=== PATIENT | female | born 1965 | race Caucasian/White ===

== ENCOUNTER 2022-01-23 16:14 | Emergency (ER) | payer BC ==
[~2022-01-23] VITALS: Ht 162.6 cm; Wt 90.7 kg
[~2022-01-23 16:14] MED LIST: ESCITALOPRAM OX20 MG PO; ESTRADIOL1 EA10 TD; FLONASE ALLERG9.9 ML NAS; LEXAPRO10 MG PO; MULTIVITAMINS1 EAC7 PO; TOPIRAMATE25 MG PO; VITAMIN D1000 UNIT PO; ZYRTEC10 M3 PO
[2022-01-23] MEDS ORDERED: ONDANSETRON ODT4 MG PO (18:12)
== END 2022-01-23 18:21 | disposition home or self-care (01) ==
LOC: ED 16:14
DX: J06.9 Acute upper respiratory infection, unspecified (principal); R19.7 Diarrhea, unspecified; R11.0 Nausea; Z87.891 Personal history of nicotine dependence; Z20.822 Contact with and (suspected) exposure to COVID-19; Z88.2 Allergy status to sulfonamides; Z88.6 Allergy status to analgesic agent; Z88.8 Allergy status to other drugs, medicaments and biological substances
CPT/HCPCS: 87502; 99284; C9803; U0003

== ENCOUNTER 2022-02-21 05:56 | Day surgery (SDC) | payer BC ==
[~2022-02-21] VITALS: Ht 162.6 cm; Wt 89.5 kg
[~2022-02-21 05:56] MED LIST changes: +ONDANSETRON ODT4 MG PO
--- NOTE | 2022-02-21 09:32 | NUR ---
02/21/22 0931 Laureen Paniagua 0973 PATIENT ARRIVES TO PACU RESTING WITH EYES CLOSED. RESP EVEN AND UNLABORED, MASK AT 8 LITERS, DECREASED TO 6 LITERS.
--- NOTE | 2022-02-21 10:30 | NUR ---
PT ALERT, ORIENTED AND SEEMS PREPARED. HAD POSITIVE VISIT, GAVE ENCOURAGEMENT. PT HAS FRIEND THAT WILL BE HERE FOR DC. PT REQUESTED PRAYER, WILL FOLLOW
--- NOTE | 2022-02-21 11:17 | NUR ---
1105: PT ARRIVES TO UNIT VIA STRETCHER FROM PACU. DROWSY BUT WAKES WHEN SPOKEN TO. ANSWERS QUESTIONS APPROPRIATELY. VSS, RESP EVEN AND UNLABORED. REPORTS FLORENCIO PAIN LEVEL, 3/10 AT THIS TIME. DENIES NAUSEA, ICE WATER AND CRACKERS PROVIDED. BEAR HUGGER AND SCDS IN PLACE. LAP SITES X4 C/D/I. POC DISCUSED AND PT VOICES UNDERSTANDING. NO NEEDS AT THIS TIME, CALL LIGHT WITHIN REACH
--- NOTE | 2022-02-21 12:01 | NUR ---
1145: PT WITH CALL FOR THIS RN, REPORTS URGE TO VOID. VSS, RESP EVEN AND UNLABORED. NO CHANGE TO LAP SITES FROM ARRIVAL. DENIES NAUSEA AND REPORTS FLORENCIO PAIN LEVEL, 3/10. DANGLES AT THE BEDSIDE, FLORENCIO WELL DENIES DIZZINESS AND SOB. AMBULATES TO BR WITH STANDBY FROM THIS RN, STEADY GAIT. SUCCESSFUL FIRST POSTOP VOID, 600ML. REQUESTS TO CHANGE INTO OWN CLOTHING, DENIES NEED FOR ASSIST. CALL LIGHT WITHIN REACH
--- NOTE | 2022-02-21 12:38 | NUR ---
1215: DENA- FRIEND CONTACTED FOR DC, TO ARRIVE IN 10-15 MINUTES. SL DC'D WITH CATH TIP INTACT AND PRESSURE APPLIED TO SITE. DC INSTRUCTIONS PROVIDED AND DISCUSSED ORDERED. PT VOICES UNDERSTANDING AND DENIES QUESTIONS AND CONCERNS AT THIS TIME. 1225: PT WHEELED OFF OF UNIT BY THIS RN IN . TRANSFERS INTO VEHICLE INDEPENDENTLY AND APPROPRIATELY. NO PHYSICAL S/S OF DISTRESS AT THIS TIME
--- NOTE | 2022-02-21 17:26 | OR ---
[facility] [address] [place], [place] [address] Signed DATE OF OPERATION: 02/21/2022 SURGEON: Chichi Driver DO PREOPERATIVE DIAGNOSES: 1. Chronic pelvic pain. 2. History of pelvic adhesions. POSTOPERATIVE DIAGNOSES: 1. Chronic pelvic pain. 2. Extensive abdominal and pelvic adhesions. PROCEDURE PERFORMED: Laparoscopic extensive lysis of adhesions greater than 60 minutes. FIRE EQUIPMENT INSPECTOR: Savannah Mooney DO. INTRAOPERATIVE CONSULTATION: Karan Deluca MD, General Surgery. ANESTHESIA: General. ESTIMATED BLOOD LOSS: 20 mL. SPECIMEN: None. FINDINGS: Normal external genitalia with normal clitoris, urethral meatus, bilateral [place]'s, and Bartholin's gland. Normal vagina with normal vaginal cuff. Cervix, uterus and tubes and ovaries surgically absent consistent with surgical history. Extensive abdominal, pelvic and omental adhesions to the abdominal wall. Umbilicus, sigmoid colon, pelvic, peritoneum and bladder that were taken down with blunt monopolar and bipolar dissection. Hemostasis appreciated. The preperitoneal fat pad under the umbilicus with no herniation noted. Appreciate, Dr. Deluca's intraoperative recommendations. COMPLICATIONS: Electronically Signed By: CHICHI DRIVER DO 02/21/22 1726 PATIENT NAME: JUNIE ROSALES OPERATIVE REPORT DATE OF : 65 REPORT #: [id number] PHYSICIAN: CHICHI DRIVER DO PCP: ARSENIO GAMBINO DO REPORT IS CONFIDENTIAL AND NOT TO BE RELEASED WITHOUT AUTHORIZATION [facility] [address] [place], [place] [address] Signed None. INDICATIONS: Ms. Rosales is a very pleasant 56-year-old postmenopausal female who underwent total laparoscopic hysterectomy, bilateral salpingo-oophorectomy years ago for chronic pelvic pain and was noted to have a pelvic adhesions at that time per patient. She reports a recurrence of similar pain specially in the right lower quadrant that she attributes to adhesive disease. Reviewed options for further evaluation and management of this and patient desires diagnostic laparoscopy with possible lysis of adhesions. Risks, benefits, and alternatives were discussed in detail with the patient. The patient understands and wished to proceed with the procedure. PROCEDURE IN DETAIL: The patient was taken to the operating room. Time-out was performed confirming correct patient and procedure. General anesthesia was adequately established. The patient was prepped and draped in dorsal lithotomy position with her feet in Yellofin stirrups. ICPs were on and running and no preoperative antibiotics were indicated. The patient did receive 5000 units of heparin per preoperative Caprini score. A Madison catheter was inserted and the surgeon's gloves were changed. Attention was turned to the umbilicus. Infraumbilical incision was made approximately 2 cm below the umbilicus after infiltration with 0.25% Marcaine with epinephrine. The fascia was grasped with hemostats, elevated, and entered sharply with Metzenbaum scissors. Stay sutures of 0 Vicryl applied to the inferior and superior edges of the umbilical incision and blunt dissection was carried down through the peritoneum. Rose port was placed but was placed into the preperitoneal space and extensive adhesions of the omentum were noted. Decision was made to make entrance at pa's point. An orogastric tube was kindly placed by Anesthesia, and a 5 mm stab incision was made in the midclavicular line under the inferior edge of the left ribs. A 5 mm operative port was placed under direct visualization without complication. At this point, the Rose umbilical port was able to be worked into the abdominal cavity around the adhesions without difficulty. Attention was then turned to placement of assist ports. A 5 mm assist ports were placed in the right lower quadrant and left lower quadrant under direct visualization without complication. Extensive abdominal and omental adhesions were identified including of the anterior abdominal wall, kenia-umbilicus, sigmoid colon, pelvic peritoneum, and bladder. These were taken down with a combination of blunt dissection, monopolar, and bipolar dissection with LigaSure Advance device. Normal pelvic anatomy was re-established and hemostasis of dissection points was appreciated. The pelvis and abdomen were copiously irrigated and again found to be hemostatic. Tisseel was applied to dissection sites. Intraoperative consultation was requested of Dr. Karan Deluca, who presented to the operative room. We reviewed sigmoid adhesions on the left deep in the pelvis and we both felt that no additional dissection of these adhesions was necessary. These were largely physiologic. She was evaluated for umbilical hernia and again no Electronically Signed By: CHICHI DRIVER DO 02/21/22 1726 PATIENT NAME: JUNIE ROSALES OPERATIVE REPORT DATE OF : 65 REPORT #: [id number] PHYSICIAN: CHICHI DRIVER DO PCP: ARSENIO GAMBINO DO REPORT IS CONFIDENTIAL AND NOT TO BE RELEASED WITHOUT AUTHORIZATION [address] [address] Signed omentum was noted to be herniating through the periumbilical site and just a small pad of preperitoneal fat was appreciated. Trocars removed and pneumoperitoneum was reduced. The infraumbilical incision was repaired using 0 Vicryl in a running nonlocked manner. Skin was reapproximated using 4-0 Monocryl in subcuticular stitch with excellent hemostasis, cosmesis after removal of a small plug of preperitoneal fat with Metzenbaum scissors. Madison catheter was removed. The patient was taken to PACU in good and stable condition. Sponge, needle and instrument counts were correct x2 at the end of procedure. Dr. Mooney was present and participated in all portions of the procedure. Chichi Driver DO JDW/ANAM /[id number] Copies: ~ Electronically Signed By: CHICHI DRIVER DO 02/21/22 1726 PATIENT NAME: JUNIE ROSALES OPERATIVE REPORT DATE OF : 65 REPORT #: [id number] PHYSICIAN: CHICHI DRIVER DO PCP: ARSENIO GAMBINO DO REPORT IS CONFIDENTIAL AND NOT TO BE RELEASED WITHOUT AUTHORIZATION
== END 2022-02-21 12:25 | disposition home or self-care (01) ==
LOC: OPS 05:56 → DS 05:56 → OPS 07:30 → DS 07:30 → OPS 12:25
PROVIDERS: ATTEND Obstetrics & Gynecology
PROC: 0DNN4ZZ Release Sigmoid Colon, Percutaneous Endoscopic Approach (ICD-10-PCS; principal; 2022-02-21 07:30)
DX: N73.6 Female pelvic peritoneal adhesions (postinfective) (principal); Z88.6 Allergy status to analgesic agent; Z88.2 Allergy status to sulfonamides; E66.9 Obesity, unspecified; Z68.36 Body mass index [BMI] 36.0-36.9, adult; G47.33 Obstructive sleep apnea (adult) (pediatric); Z88.8 Allergy status to other drugs, medicaments and biological substances; G89.29 Other chronic pain
CPT/HCPCS: 36415; 86850; 86900; 86901; J0131; J1100; J1644; J1885; J2001; J2250; J2405; J2550; J2704; J3010; J3475; J7121